=== PATIENT | male | born 1965 ===

== ENCOUNTER → 2021-01-24 | Outpatient (CLI) | payer OTHER | END | disposition home or self-care (01) | LOC: MRI 08:34 | PROVIDERS: ATTEND Radiology Diagnostic Radiology | DX: M25.561 Pain in right knee (principal); G89.29 Other chronic pain | CPT/HCPCS: 73721 ==

== ENCOUNTER → 2021-08-21 11:35 | Outpatient (CLI) | payer OTHER | END | disposition home or self-care (01) | LOC: LAB 11:35 | PROVIDERS: ATTEND Radiology Diagnostic Radiology | DX: N18.9 Chronic kidney disease, unspecified (principal) ==

== ENCOUNTER 2021-08-26 09:13 | Outpatient (CLI) | payer OTHER | END 2021-08-26 09:22 | disposition home or self-care (01) | LOC: MRI 09:13 | PROVIDERS: ATTEND Otolaryngology Otolaryngology/Facial Plastic Surgery | DX: H90.3 Sensorineural hearing loss, bilateral (principal); H81.319 Aural vertigo, unspecified ear; R51.9 Headache, unspecified | CPT/HCPCS: 70553 ==